=== PATIENT | male | born 1955 | race Caucasian/White ===

== ENCOUNTER → 2021-04-28 | Day surgery (SDC) | payer MEDICAID ==
[~2021-04-28] MED LIST: Flumazenil 0.1 MG/ML 5 ML MDV ONE; Lidocaine 1% 30 ML SDV ONE; Lidocaine 1% with EPINEPHrine 1:100,000 20 ML MDV ONE; Midazolam 1 MG/ML 2 ML SDV ONE; Ondansetron 4 MG/2 ML SDV ONE; Propofol 200 MG/20 ML SDV ONE; fentaNYL 100 MCG/2 ML SDV ONE
[2021-04-28] MEDS: Lactated Ringers 1,000 ML IV SCH (08:51)
--- NOTE | 2021-04-28 11:08 | OR ---
DATE OF OPERATION: 04/28/2021 PREOPERATIVE DIAGNOSIS: MASS, POSTERIOR NECK. POSTOPERATIVE DIAGNOSIS: MASS, POSTERIOR NECK. SURGEON: Nicola Cardona MD PROCEDURE: EXCISION OF 8 CM LIPOMA, INTRAMUSCULAR, ON THE POSTERIOR NECK. ANESTHESIA: Local plus MAC. SPECIMEN: Lipoma. INDICATIONS: This 65-year-old male has a large mass on the back of his neck measuring approximately 10 cm. This is mobile and nontender. DESCRIPTION OF PROCEDURE: After adequate preparation, 1% Xylocaine with epinephrine was used to infiltrate an area on the skin over the mass and skin incision was made and carried down to this mass, which appeared to be intramuscular in the upper portion of the trapezius muscle. Incision was made in the muscle to separate this out, and then by blunt dissection, I was able to core around this mass, which was a dense fatty mass consistent with intramuscular lipoma. Hemostasis was controlled by cautery. The deep layer was closed with a 2-0 Vicryl suture and the skin was closed with 4-0 Vicryl. BPB/MODL /[id number]
== END ==
LOC: CC.SDS 08:33
PROVIDERS: ATTEND Surgery
DX: D17.0 Benign lipomatous neoplasm of skin and subcutaneous tissue of head, face and neck (principal); Z88.0 Allergy status to penicillin
CPT/HCPCS: 00300; J2250; J2405; J2704; J3010; J3490; J7120